=== PATIENT | male | born 1945 | race African-American/Black ===

== ENCOUNTER → 2020-02-09 | Emergency (ER) | payer OTHER ==
[~2020-02-09] VITALS: Ht 170.2 cm; Wt 99.8 kg
[~2020-02-09] MED LIST: ASPI-404 PO; ASPirin 81 mg TAB PO ONE; ATOR20TA50 PO; FLUT0.05 NAS; HYDR-4833 PO; HYDR25TA4 PO; LISI40TA PO; METO-159 PO; MORPHINE SULFATE 4 MG/ML SYR/VIAL IV ONE; NIFE1TAB31 PO; NITROGLYCERIN 0.2MG/HR TOPICAL PATCH TD ONE; NITROGLYCERIN 0.4 MG SL TAB SL ONE; ONDANSETRON HCL 4 MG/2 ML VIAL IV ONE; SILD20TA PO
[2020-02-09 11:18] LABS: Basophils # (auto) 0 10 ^3/uL (0-0.2); Basophils % (auto) 0.9 % (0.0-2.0); Eosinophils # (auto) 0.2 10 ^3/uL (0-0.8); Eosinophils % (auto) 3.2 % (0.0-7.0); Hematocrit 39.7 % (41.0-53.0); Hemoglobin 13.6 g/dL (13.5-17.5); Lymphocytes # (auto) 1.9 10 ^3/uL (0.4-5.4); Lymphocytes % (auto) 38.2 % (10.0-50.0); Mean Corpuscular Hemoglobin 32.7 pg (28.0-32.0); Mean Corpuscular Hgb Conc. 34.2 g/dL (32.0-36.0); Mean Corpuscular Volume 95.5 fL (80.0-100.0); Monocytes # (auto) 0.5 10 ^3/uL (0-1.3); Monocytes % (auto) 9.3 % (0.0-12.0); Neutrophils # (auto) 2.4 10 ^3/uL (1.6-8.6); Neutrophils % (auto) 48.4 % (37.0-80.0); Nucleated Red Blood Cells % 0.4 %; Platelet Count (auto) 175 10^3/uL (140-450); Red Blood Cells 4.15 10^6/uL (4.5-5.90); Red Cell Distribution Width 12.4 % (11.8-14.3)
[2020-02-09 11:41] LABS: Albumin 3.9 g/dL (3.4-5.0); Anion Gap 5 (5-15); Blood Urea Nitrogen 12 mg/dL (7-18); Calcium 8.9 mg/dL (8.5-10.1); Carbon Dioxide 30 mmol/L (21-32); Chloride 104 mmol/L (98-107); Glucose 123 mg/dL (74-106); Magnesium 2.4 mg/dL (1.6-2.6); Potassium 3.8 mmol/L (3.5-5.1); Sodium 139 mmol/L (136-145)
[2020-02-09 11:46] LABS: Alanine Aminotransferase 27 U/L (16-61); Alkaline Phosphatase 53 U/L (45-117); Aspartate Aminotransferase 19 U/L (15-37); BUN/Creatinine Ratio 10.8; Bilirubin, Total 0.6 mg/dL (0.2-1.0); GFR African American 83 mL/min; GFR Non-African American 68 mL/min; Total Protein 7.8 g/dL (6.4-8.2)
[2020-02-09 14:50] VITALS: BP 153/86
== END | disposition home or self-care (01) ==
LOC: EDBD 10:48 → ER 10:48
DX: I24.9 Acute ischemic heart disease, unspecified (principal); I10 Essential (primary) hypertension
CPT/HCPCS: 36415; 71046; 80053; 83735; 83880; 84443; 84484; 85025; 93005; 99285; J7030